=== PATIENT | female | born 1940 | race Caucasian/White ===

== ENCOUNTER 2017-03-17 07:44 | Emergency (ER) | payer MEDICARE, OTHER ==
[2016-10-22 08:54] VITALS: BMI 25.8
[~2017-03-17 07:44] MED LIST: COLACE100 MG PO; CYCLOBENZAPRINE10 MG PO; EFFIENT10 MG PO; ELIQUIS2.5 MG PO; ELIQUIS5 MG PO; FLUTICASONE PRO16 GM NASAL; FLUTICASONE PRO16 GM NS; HCTZ25 MG PO; HYDROCODONE-APA1 TAB; HYDROCODONE-APA1 TAB PO; IMDUR30 MG PO; LISINOPRIL5 MG PO; NEXIUM40 MG PO; NITROSTAT0.4 MG SL; NORCO 10/325 TA1 TA1 PO; NORVASC5 MG PO; PHENERGAN25 M1 PO; PRAVACHOL40 MG PO; SINGULAIR10 MG PO; TRAZODONE HCL50 MG PO; VALIUM5 MG PO; VITAMIN B-12500 MC1 PO; XANAX0.5 MG PO; ZESTRIL20 MG PO; ZOFRAN8 MG PO
[2017-03-17 08:53] LABS: BASOPHILS 0.5 % (0-2); EOSINOPHILS 2.9 % (0-7); HEMATOCRIT 37.5 % (36.0-48.0); HEMOGLOBIN 12.1 g/dL (12-16); LYMPHOCYTES 36.5 % (15-50); MCH 30.5 pg (26.0-34.0); MCHC 32.3 g/dL (31.0-37.0); MCV 94.5 fL (80.0-100.0); MEAN PLATELET VOLUME 12.1 fL (7.4-10.4); MONOCYTES 8.2 % (2-11); NEUTROPHILS 51.9 % (40-80); PLATELET COUNT 191 10x3/uL (130-400); RBC 3.97 10x6/uL (4.00-5.40); RDW 12.9 % (11.5-14.5); WBC 4.4 10x3/uL (4.8-10.8)
[2017-03-17 09:02] LABS: ALBUMIN 3.3 g/dL (3.4-5.0); BILIRUBIN - TOTAL 0.18 mg/dL (0.2-1.3); CARBON DIOXIDE 25.4 mmol/L (21.0-32.0); CREATININE - SERUM 1.2 mg/dL (0.6-1.3); POTASSIUM - SERUM 5.4 mmol/L (3.5-5.1); PROTEIN - SERUM 7.1 g/dL (6.4-8.2)
[2017-03-17 09:05] LABS: APPEARANCE CLEAR (CLEAR); BILIRUBIN NEGATIVE (NEGATIVE); COLOR YELLOW (YELLOW); GLUCOSE NEGATIVE (NEGATIVE); KETONE NEGATIVE (NEGATIVE); LEUKOCYTE ESTERASE NEGATIVE (NEGATIVE); NITRITE NEGATIVE (NEGATIVE); PROTEIN NEGATIVE (NEGATIVE); SPECIFIC GRAVITY 1.005 (1.005-1.020); UROBILINOGEN NORMAL (NORMAL)
[2017-03-17 09:07] LABS: BACTERIA NONE SEEN /hpf (NONE SEEN); EPITHELIAL CELLS 0-5 /hpf (0-5); RED CELLS - URINE 0-5 /hpf (0-5); WHITE CELLS - URINE 0-5 /hpf (0-5)
== END 2017-03-17 14:30 | disposition home or self-care (01) ==
LOC: D.ER 07:44
PROVIDERS: Emergency Medicine
DX: R53.1 Weakness (principal); R06.00 Dyspnea, unspecified; I25.10 Atherosclerotic heart disease of native coronary artery without angina pectoris; I10 Essential (primary) hypertension; R00.1 Bradycardia, unspecified

== ENCOUNTER → 2017-04-27 09:26 | Outpatient (CLI) | payer MEDICARE, OTHER ==
[2016-10-22 08:54] VITALS: BMI 25.8
== END | disposition home or self-care (01) ==
LOC: D.RT 09:26
DX: J47.9 Bronchiectasis, uncomplicated (principal)

== ENCOUNTER → 2017-05-05 11:55 | Outpatient (CLI) | payer MEDICARE, OTHER ==
[2016-10-22 08:54] VITALS: BMI 25.8
[2017-05-05 12:51] LABS: BASOPHILS 0.6 % (0-2); EOSINOPHILS 2.2 % (0-7); HEMATOCRIT 40.3 % (36.0-48.0); HEMOGLOBIN 13.1 g/dL (12-16); IMMATURE GRANULOCYTES 0.2 % (0-5); LYMPHOCYTES 30.2 % (15-50); MCH 31.3 pg (26.0-34.0); MCHC 32.5 g/dL (31.0-37.0); MCV 96.4 fL (80.0-100.0); MEAN PLATELET VOLUME 11.5 fL (7.4-10.4); MONOCYTES 6.7 % (2-11); NEUTROPHILS 60.1 % (40-80); PLATELET COUNT 213 10x3/uL (130-400); RBC 4.18 10x6/uL (4.00-5.40); RDW 13.2 % (11.5-14.5); WBC 5.1 10x3/uL (4.8-10.8)
[2017-05-06 08:19] LABS: IMMUNOGLOBULIN E 25 IU/mL (0-100)
[2017-05-06 12:17] LABS: IMMUNOGLOBULIN A 399 mg/dL (64-422); IMMUNOGLOBULIN G 1025 mg/dL (700-1600); IMMUNOGLOBULIN M 37 mg/dL (26-217)
== END | disposition home or self-care (01) ==
LOC: D.LAB 11:55
PROVIDERS: Internal Medicine Pulmonary Disease
DX: Z87.01 Personal history of pneumonia (recurrent) (principal); J47.9 Bronchiectasis, uncomplicated; J44.9 Chronic obstructive pulmonary disease, unspecified

== ENCOUNTER → 2017-06-30 13:22 | Outpatient (CLI) | payer MEDICARE, OTHER ==
[2016-10-22 08:54] VITALS: BMI 25.8
== END | disposition home or self-care (01) ==
LOC: D.RAD 13:22
DX: J47.9 Bronchiectasis, uncomplicated (principal)

== ENCOUNTER → 2018-06-26 07:47 | Outpatient (CLI) | payer MEDICARE, OTHER ==
[2016-10-22 08:54] VITALS: BMI 25.8
--- NOTE | ~2018-06-26 | EC ---
PATIENT:CATRINA WALDEN DATE OF SERVICE: 06/26/18 SEX: F MEDICAL RECORD: [id number] DATE OF : 38 LOCATION:D.RT AGE OF PATIENT: 78 ADMISSION DATE: 06/26/18 REFERRING PHYSICIAN: INTERPRETING PHYSICIAN: SANDHYA FALL MD ECHOCARDIOGRAM REPORT ECHO CHARGES 4 ECHO COMPLETE Date: 06/26 CLINICAL DIAGNOSIS: PE, EDEMA ECHOCARDIOGRAPHIC MEASUREMENTS (adult normal given) AC root (d.<3.7cm) 2.6 cm LV Septum d (<1.2 cm> 1.6 cm Valve Excursion 1.8 cm LV Septum (systole) 1.9 cm Left Atria (s.<4.0cm> 3.2 cm LVPW d(<1.2cm) 0.7 cm RV (d.<2.3cm) 2.0 cm LVPW (sytole) 0.9 cm LV diastole(<5.6CM) 4.1 cm MV E-F(>70mm/sec) cm LV systole 3.3 cm LVOT Diameter 1.8 cm MV exc.(>10mm) cm Est.ejection fraction (50-75%) % DOPPLER: LVIT cm/sec A 94 cm/sec E 80 cm/sec LA cm/sec RVSP 18.6 mmHg LVOT 102 cm/sec AOP1/2T m/s Asc. Ao 158 cm/sec RVOT 81 cm/sec RA cm/sec PA 86 cm/sec AV Gradient Peak 10.0 mmHg AV Mean 4.9 mmHg AV Area 1.5 cm MV Gradient Peak 5.1 mmHg MV Mean 2.1 mmHg MV Area cm COMMENTS: Adjustment Clerk: Carlene LARSENSONJA ANGIE Comfort Filler: 1 Dr. Fall TAPE# PACS Pericardial Effusion N DATE OF SERVICE: 06/26/2018 PROCEDURE: Echocardiogram. FINDINGS: 1. Left ventricular chamber size is within normal limits. Left ventricular systolic function is normal. Overall ejection fraction estimated at 55%. 2. Left atrium, right atrium, and right ventricle chamber sizes are within normal limits. 3. Valvular structures have normal structure and motion. ECHOCARDIOGRAM REPORT [id number] CATRINA WALDEN 4. Doppler interrogation reveals only trace to mild mitral regurgitation, trace mild tricuspid regurgitation, no other valvular insufficiency or stenosis. 5. No evidence of pericardial effusion or left ventricular thrombus. TRANSINT:[id number] Voice Confirmation ID: [id number] DOCUMENT ID: [id number] SANDHYA FALL MD at 1642 CC: [id number] DICTATION DATE: 06/26/18 1232 INSPECTOR PLATING: 06/26/18 1333 DEP CLI 06/26/18 [place] [id number]
[2018-06-26 09:24] LABS: CREATININE - SERUM 1.4 mg/dL (0.6-1.3)
== END | disposition home or self-care (01) ==
LOC: D.RT 07:47
PROVIDERS: Internal Medicine Pulmonary Disease
DX: Z86.711 Personal history of pulmonary embolism (principal); R60.0 Localized edema; I25.10 Atherosclerotic heart disease of native coronary artery without angina pectoris; J44.9 Chronic obstructive pulmonary disease, unspecified

== ENCOUNTER 2018-09-15 09:52 | Emergency (ER) | payer MEDICARE, OTHER ==
[~2018-09-15] VITALS: Ht 162.6 cm; Wt 81.8 kg
[2018-09-15 09:55] VITALS: Ht 162.6 cm; Wt 81.8 kg
[2018-09-15 12:33] VITALS: BP 170/86
== END 2018-09-15 12:33 | disposition home or self-care (01) ==
LOC: D.ER 09:52
DX: M25.562 Pain in left knee (principal); M25.561 Pain in right knee; S00.83XA Contusion of other part of head, initial encounter; W18.30XA Fall on same level, unspecified, initial encounter; Y93.89 Activity, other specified; Y92.019 Unspecified place in single-family (private) house as the place of occurrence of the external cause; S49.92XA Unspecified injury of left shoulder and upper arm, initial encounter; R51 Headache

== ENCOUNTER → 2018-12-25 10:43 | Outpatient (CLI) | payer MEDICARE, OTHER, MEDICAID ==
[2018-09-15 09:55] VITALS: BMI 30.9
--- NOTE | 2019-01-02 11:18 | ST ---
PATIENT:CATRINA WALDEN MEDICAL RECORD: [id number] SEX: F LOCATION:[facility] ORDER #: ADMISSION DATE: 12/25/18 AGE OF PATIENT: 78 REFERRING PHYSICIAN: INTERPRETING PHYSICIAN: SANDHYA MYERS MD DATE OF SERVICE: 12/25/2018 PROCEDURE: Nuclear stress test. INDICATION: Angina and coronary artery disease, shortness of breath, hypertension. The patient was exercised on standard Lexiscan protocol with 32 mCi of sestamibi injected at peak stress, 11 mCi were used previously for rest images. FINDINGS: Gated SPECT reveals preserved ejection fraction at 68% with good wall motion and thickening and brightening throughout all segments. SPECT imaging Cardiolite was used as myocardial fusion agent. There is homogeneous uptake throughout all segments at rest and stress with no evidence of inducible ischemia or previous infarction. OVERALL IMPRESSION: 1. This is a normal nuclear stress test with no evidence of inducible ischemia or previous infarction. 2. Gated SPECT reveals a preserved ejection fraction at 68%. In this patient with ongoing symptomatology, the current scan does not suggest the presence of hemodynamically significant coronary artery disease. Evaluate noncardiac etiology of chest pain. TRANSINT:[id number] Voice Confirmation ID: [id number] DOCUMENT ID: [id number] SANDHYA MYERS MD at 1118 CC: [id number] DICTATION DATE: 12/26/18 1159 FARMWORKER FRUIT: 12/27/18 0316 DEP CLI 12/25/[address] [id number]
== END | disposition home or self-care (01) ==
LOC: D.HCCARDIO 10:43
DX: R07.89 Other chest pain (principal)

== ENCOUNTER → 2019-09-12 13:45 | Outpatient (CLI) | payer MEDICARE, OTHER, MEDICAID ==
[2018-09-15 09:55] VITALS: BMI 30.9
== END | disposition home or self-care (01) ==
LOC: D.RAD 09-11 14:45 → D.RT 09-11 15:00 → D.RAD 09-14 09:45
PROVIDERS: ATTEND Internal Medicine Pulmonary Disease
DX: J45.909 Unspecified asthma, uncomplicated (principal)

== ENCOUNTER 2019-11-13 15:30 | Emergency (ER) | payer MEDICARE, OTHER, MEDICAID ==
[~2019-11-13] VITALS: Ht 162.6 cm; Wt 64.5 kg
[2019-11-13 15:30] VITALS: Ht 162.6 cm; Wt 64.5 kg
[2019-11-13 16:52] LABS: BASOPHILS 0.5 % (0-2); EOSINOPHILS 3.1 % (0-7); HEMATOCRIT 34.5 % (36.0-48.0); HEMOGLOBIN 11.2 g/dL (12-16); IMMATURE GRANULOCYTES 0.2 % (0-5); LYMPHOCYTES 36.5 % (15-50); MCHC 32.5 g/dL (31.0-37.0); MCV 95.6 fL (80.0-100.0); MEAN PLATELET VOLUME 10.4 fL (7.4-10.4); MONOCYTES 7.6 % (2-11); NEUTROPHILS 52.1 % (40-80); RBC 3.61 10x6/uL (4.00-5.40); WBC 5.8 10x3/uL (4.8-10.8)
[2019-11-13 16:57] LABS: PLATELET COUNT 286 10x3/uL (130-400)
[2019-11-13 17:05] LABS: CALC OSMOLALITY 281 mosm/kg (275-300); CALCIUM 8.1 mg/dL (8.5-10.1); CARBON DIOXIDE 27.7 mmol/L (21.0-32.0); CHLORIDE - SERUM 107 mmol/L (98-107); CREATININE - SERUM 0.9 mg/dL (0.6-1.3); GLUCOSE 91 mg/dL (74-106); INR 1.16 (0.85-1.17); POTASSIUM - SERUM 4.3 mmol/L (3.5-5.1); PROTIME 14.8 SECONDS (11.6-15.0); SODIUM 141 mmol/L (136-145); UREA NITROGEN 16 mg/dL (7-18); eGFR NON AFRICAN AMERICAN 64 mL/min (90-120)
[2019-11-13 17:22] LABS: ALBUMIN 3.3 g/dL (3.4-5.0); ALKALINE PHOSPHATASE 40 U/L (46-116); ALT (SGPT) 13 U/L (10-68); BILIRUBIN - TOTAL 0.25 mg/dL (0.2-1.3); CKMB 0.9 U/L (0.0-3.6); CREATINE KINASE 59 UL (21-215); MAGNESIUM - SERUM 2.2 mg/dL (1.8-2.4); THYROID STIMULATING HORMONE 1.39 uIU/mL (0.36-3.74)
[2019-11-13 17:24] LABS: TROPONIN-I < 0.017 ng/mL (0.000-0.060)
[2019-11-13 19:01] LABS: APPEARANCE CLEAR (CLEAR); BILIRUBIN NEGATIVE (NEGATIVE); COLOR YELLOW (YELLOW); GLUCOSE NEGATIVE (NEGATIVE); KETONE NEGATIVE (NEGATIVE); NITRITE NEGATIVE (NEGATIVE); PROTEIN NEGATIVE (NEGATIVE); UROBILINOGEN NORMAL (NORMAL)
[2019-11-13] MEDS ORDERED: MECLIZINE HCL25 MG PO (19:02)
[2019-11-13 19:38] VITALS: BP 140/66
[2019-11-16] MEDS ORDERED: DILTIAZEM 24HR240 M4 (00:46)
== END 2019-11-13 19:38 | disposition home or self-care (01) ==
LOC: D.ER 15:30
PROVIDERS: Family Medicine
DX: R42 Dizziness and giddiness (principal); W19.XXXA Unspecified fall, initial encounter; R55 Syncope and collapse; I25.10 Atherosclerotic heart disease of native coronary artery without angina pectoris; Z95.5 Presence of coronary angioplasty implant and graft; M54.9 Dorsalgia, unspecified

== ENCOUNTER 2019-11-16 00:34 | Inpatient (IN) | payer MEDICARE, OTHER, MEDICAID ==
[~2019-11-16] VITALS: Ht 162.6 cm; Wt 64.0 kg
[~2019-11-16 00:34] MED LIST changes: +MECLIZINE HCL25 MG PO
[2019-11-16] MEDS ORDERED: BENICAR20 MG PO (00:43)
[2019-11-16] MEDS ORDERED: BROVANA15 MCG/2 M INH (00:44)
[2019-11-16] MEDS ORDERED: LOMOTIL 2.5-0.1 EAC1 PO (00:45)
[2019-11-16] MEDS ORDERED: PULMICORT0.5 MG/21 INH (00:45)
[2019-11-16] MEDS ORDERED: DILTIAZEM 24HR240 M4 PO (00:46)
[2019-11-16 01:00] LABS: BASOPHILS 0.1 % (0-2); EOSINOPHILS 1.7 % (0-7); HEMATOCRIT 35.1 % (36.0-48.0); HEMOGLOBIN 11.4 g/dL (12-16); IMMATURE GRANULOCYTES 0.2 % (0-5); LYMPHOCYTES 6.2 % (15-50); MCH 30.9 pg (26.0-34.0); MCHC 32.5 g/dL (31.0-37.0); MCV 95.1 fL (80.0-100.0); MEAN PLATELET VOLUME 11.1 fL (7.4-10.4); MONOCYTES 7.6 % (2-11); NEUTROPHILS 84.2 % (40-80); RBC 3.69 10x6/uL (4.00-5.40); WBC 9.7 10x3/uL (4.8-10.8)
[2019-11-16 01:03] LABS: PLATELET COUNT 121 10x3/uL (130-400)
[2019-11-16 01:13] LABS: CALC OSMOLALITY 281 mosm/kg (275-300); CALCIUM 8.3 mg/dL (8.5-10.1); CARBON DIOXIDE 27.4 mmol/L (21.0-32.0); CHLORIDE - SERUM 107 mmol/L (98-107); GLUCOSE 126 mg/dL (74-106); POTASSIUM - SERUM 4.3 mmol/L (3.5-5.1); SODIUM 140 mmol/L (136-145); UREA NITROGEN 16 mg/dL (7-18); eGFR NON AFRICAN AMERICAN 56 mL/min (90-120)
[2019-11-16 01:25] LABS: ALBUMIN 3.2 g/dL (3.4-5.0); ALKALINE PHOSPHATASE 36 U/L (46-116); ALT (SGPT) 12 U/L (10-68); AMYLASE - SERUM 35 U/L (25-115); BILIRUBIN - TOTAL 0.24 mg/dL (0.2-1.3); LIPASE 71 U/L (73-393); PROTEIN - SERUM 6.7 g/dL (6.4-8.2)
[2019-11-16 01:26] LABS: TROPONIN-I < 0.017 ng/mL (0.000-0.060)
[2019-11-16 02:38] LABS: APPEARANCE CLEAR (CLEAR); BILIRUBIN NEGATIVE (NEGATIVE); COLOR YELLOW (YELLOW); GLUCOSE NEGATIVE (NEGATIVE); KETONE NEGATIVE (NEGATIVE); NITRITE NEGATIVE (NEGATIVE); PROTEIN 1+ mg/dL (NEGATIVE); SPECIFIC GRAVITY 1.015 (1.005-1.020); UROBILINOGEN NORMAL (NORMAL)
[2019-11-16 02:39] LABS: BACTERIA FEW /hpf (NEGATIVE); EPITHELIAL CELLS 0-5 /hpf (0-5); RED CELLS - URINE 0-5 /hpf (0-5); WHITE CELLS - URINE 0-5 /hpf (NEGATIVE)
[2019-11-16 03:00] VITALS: BP 124/58; BMI 24.2
[2019-11-16 05:30] VITALS: BP 124/58
--- NOTE | 2019-11-16 07:30 | NUR ---
PT IS RESTING IN BED WITH EYES CLOSED. RESPIRATIONS ARE EVEN AND UNLABORED. PT IS EASILY AROUSED WITH VERBAL STIMULATION. PT IS AAO X 4 UPON AROUSAL. PIV TO LEFT FOREARM INFUSING WITHOUT DIFFICULTY. PT DENIES PRESENCE OF PAIN/N/V. PT STATES THAT SHE HAS HAD MULTIPLE LOOSE STOOLS "RECENTLY". ALL FALL PRECAUTIONS ARE IN PLACE. BED IS IN THE LOWEST POSITION. CALL LIGHT AND BEDSIDE TABLE ARE WITHIN REACH. SIDE RAILS X 2. PT DENIES FURTHER NEEDS. WILL CONT TO MONITOR.
[2019-11-16 09:24] VITALS: BP 160/67
[2019-11-16 12:38] VITALS: Ht 162.6 cm; Wt 64.0 kg
[2019-11-16 13:41] VITALS: BP 146/57
[2019-11-16 16:01] LABS: CKMB 0.4 U/L (0.0-3.6); CREATINE KINASE 65 UL (21-215); TROPONIN-I 0.027 ng/mL (0.000-0.060)
[2019-11-16 17:16] VITALS: BP 141/51
[2019-11-16 20:00] VITALS: BP 138/61
[2019-11-16 21:25] LABS: CKMB 0.6 U/L (0.0-3.6); CREATINE KINASE 15 UL (21-215)
[2019-11-16 21:28] LABS: TROPONIN-I 0.089 ng/mL (0.000-0.060)
--- NOTE | 2019-11-16 21:35 | NUR ---
ELEVATED TROPONIN 0.089 REPORTED TO WANDA RODRIGUEZ. NO NEW ORDERS. WILL CONTINUE TO MONITOR.
[2019-11-17] VITALS: BP 122/46
[2019-11-17 04:00] VITALS: BP 131/54
[2019-11-17 06:30] LABS: BASOPHILS 0.3 % (0-2); HEMATOCRIT 32.2 % (36.0-48.0); HEMOGLOBIN 10.1 g/dL (12-16); LYMPHOCYTES 31.8 % (15-50); MCH 30.3 pg (26.0-34.0); MCHC 31.4 g/dL (31.0-37.0); MCV 96.7 fL (80.0-100.0); MEAN PLATELET VOLUME 10.4 fL (7.4-10.4); MONOCYTES 11.9 % (2-11); RBC 3.33 10x6/uL (4.00-5.40); RDW 13.3 % (11.5-14.5)
[2019-11-17 06:44] LABS: PLATELET COUNT 255 10x3/uL (130-400); WBC 3.8 10x3/uL (4.8-10.8)
[2019-11-17 08:50] LABS: ALBUMIN 2.6 g/dL (3.4-5.0); ALKALINE PHOSPHATASE 35 U/L (46-116); ALT (SGPT) 12 U/L (10-68); BILIRUBIN - TOTAL 0.18 mg/dL (0.2-1.3); CALC OSMOLALITY 288 mosm/kg (275-300); CALCIUM 7.6 mg/dL (8.5-10.1); CARBON DIOXIDE 24.4 mmol/L (21.0-32.0); CHLORIDE - SERUM 112 mmol/L (98-107); CKMB 0.8 U/L (0.0-3.6); CREATINE KINASE 61 UL (21-215); CREATININE - SERUM 0.9 mg/dL (0.6-1.3); GLUCOSE 83 mg/dL (74-106); PROTEIN - SERUM 5.7 g/dL (6.4-8.2); SODIUM 146 mmol/L (136-145); TROPONIN-I < 0.017 ng/mL (0.000-0.060); eGFR NON AFRICAN AMERICAN 64 mL/min (90-120)
[2019-11-17 08:57] LABS: UREA NITROGEN 10 mg/dL (7-18)
[2019-11-17 09:13] VITALS: BP 126/42
[2019-11-17 13:38] VITALS: BP 145/68
[2019-11-17 17:12] VITALS: BP 140/58
--- NOTE | 2019-11-17 17:48 | NUR ---
I have reviewed this patient and I concur with the Shift Assessment completed by the Licensed Practical Nurse today this shift.
[2019-11-17 20:00] VITALS: BP 151/57
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
[2019-11-18] VITALS: BP 122/85
[2019-11-18 04:00] VITALS: BP 116/53
--- NOTE | 2019-11-18 06:31 | NUR ---
PT C/O BACK PAIN 06/16 AND STIFFNESS. GAVE NORCO-10 1 TAB PO. NO OTHER NEEDS. WILL REASSESS AND CONTINUE TO MONITOR.
[2019-11-18 06:38] LABS: ALBUMIN 2.7 g/dL (3.4-5.0); ANION GAP 12.7 mmol/L (8-16); BILIRUBIN - TOTAL 0.18 mg/dL (0.2-1.3); CALCIUM 7.4 mg/dL (8.5-10.1); CARBON DIOXIDE 24.7 mmol/L (21.0-32.0); CREATININE - SERUM 0.9 mg/dL (0.6-1.3); POTASSIUM - SERUM 3.4 mmol/L (3.5-5.1); PROTEIN - SERUM 5.9 g/dL (6.4-8.2)
[2019-11-18 06:51] LABS: BASOPHILS 0.5 % (0-2); EOSINOPHILS 5.5 % (0-7); HEMATOCRIT 31.5 % (36.0-48.0); HEMOGLOBIN 9.8 g/dL (12-16); MCH 30.2 pg (26.0-34.0); MCHC 31.1 g/dL (31.0-37.0); MCV 96.9 fL (80.0-100.0); MEAN PLATELET VOLUME 11.3 fL (7.4-10.4); MONOCYTES 11.4 % (2-11); NEUTROPHILS 50.6 % (40-80); PLATELET COUNT 249 10x3/uL (130-400); RBC 3.25 10x6/uL (4.00-5.40); RDW 13.3 % (11.5-14.5); WBC 4.4 10x3/uL (4.8-10.8)
--- NOTE | 2019-11-18 07:49 | NUR ---
SON CAME OUT TO DESK, OBVIOUSLY NERVOUS AND FIDGITY. STATES THAT THE NEPHEW WE'RE LOOKING FOR IS PART OF THE CARTEL. WILL CNT. TO MONITOR.
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
--- NOTE | 2019-11-18 14:35 | NUR ---
PT RESTING COMFORTABLY IN ROOM, DOOR CLOSED, NO FAMILY AT BEDSIDE. NO FAMILY AT BEDSIDE. PT IS STILL CONCERNED ABOUT HER NEPHEW SHOWING UP, BUT HE HAS NOT BEEN SEEN SINCE THIS MORNING. NO OTHER COMPLAINTS OR CONCERNS, ALL QUESTIONS ANSWERED TO THE BEST OF MY ABILITY. CL IN REACH, SRX2.
--- NOTE | 2019-11-18 15:13 | NUR ---
I have reviewed this patient and I concur with the Shift Assessment completed by the Licensed Practical Nurse today this shift.
[2019-11-18 17:04] VITALS: BP 164/67
[2019-11-18 19:30] VITALS: BP 123/60
[2019-11-19 00:42] VITALS: BP 120/64
--- NOTE | 2019-11-19 03:00 | NUR ---
I have reviewed this patient and I concur with the Shift Assessment completed by the Licensed Practical Nurse today this shift.
--- NOTE | 2019-11-19 03:52 | NUR ---
IV TO LFA INFILTRATED..RESTARTED TO RFA WITH 22G X 1 ATTEMPT.TOLERATED WELL.COMPLAINTS OF ANXIETY.REQUESTING VALIUM 5 MG, GIVEN PER REQUEST.
[2019-11-19 05:40] VITALS: BP 172/65
[2019-11-19 06:36] LABS: ALBUMIN 2.8 g/dL (3.4-5.0); ANION GAP 12.3 mmol/L (8-16); BILIRUBIN - TOTAL 0.2 mg/dL (0.2-1.3); POTASSIUM - SERUM 3.3 mmol/L (3.5-5.1); PROTEIN - SERUM 5.9 g/dL (6.4-8.2)
[2019-11-19 07:02] LABS: BASOPHILS 0.3 % (0-2); EOSINOPHILS 4.9 % (0-7); HEMATOCRIT 30.7 % (36.0-48.0); HEMOGLOBIN 9.9 g/dL (12-16); IMMATURE GRANULOCYTES 0.2 % (0-5); LYMPHOCYTES 25.2 % (15-50); MCH 30.4 pg (26.0-34.0); MCHC 32.2 g/dL (31.0-37.0); MEAN PLATELET VOLUME 11.4 fL (7.4-10.4); MONOCYTES 11.9 % (2-11); NEUTROPHILS 57.5 % (40-80); PLATELET COUNT 276 10x3/uL (130-400); RBC 3.26 10x6/uL (4.00-5.40); RDW 13.1 % (11.5-14.5)
[2019-11-19 07:04] LABS: MCV 94.2 fL (80.0-100.0); WBC 5.9 10x3/uL (4.8-10.8)
--- NOTE | 2019-11-19 07:34 | NUR ---
AWAKE AND ALERT. ORIENTED X3. NO C/O AT THIS TIME. LUNGS ARE CLEAR BILATERALLY BUT DIMINISHED THROUGHOUT. NO COUGH NOTED. SKIN IS INTACT WITHOUT REDNESS. SL TO RIGHT FOREARM IS PATENT WITHOUT REDNESS AT INSERTION SITE. DENIES NEEDS.
[2019-11-19 09:03] VITALS: BP 181/75
--- NOTE | 2019-11-19 09:30 | NUR ---
ATE MOST OF BREAKFAST. TOOK AM MEDS WITHOUT DIFFICUTLY. DENIES NEEDS. REFUSED BATH AT THIS TIME.
--- NOTE | 2019-11-19 10:58 | NUR ---
REQUESTED AND GIVEN ONE HYDROCODONE PO FOR C/O BACK PAIN LEVEL 10. WILL MONITOR.
--- NOTE | 2019-11-19 12:18 | CN ---
PATIENT NAME:CATRINA WALDEN MEDICAL RECORD: [id number] : 38 LOCATION:D.MS [place] ADMIT DATE: 11/16/19 ACCOUNT: [id number] CONSULTING PHYSICIAN: MARY KATE CHAVIS MD REFERRING PHYSICIAN: ABDIRASHID KINSEY MD DATE OF CONSULTATION: 11/18/2019 HISTORY OF PRESENT ILLNESS: An 79-year-old female with known history of coronary artery disease, status post intervention in the LAD and diagonal. She has a history of atrial fibrillation, paroxysmal, on DOAC for seizure prophylaxis, admitted with near syncope, diarrhea, generalized malaise, fatigue. Initial cardiac enzymes showed a troponin of 0.89. Subsequently, after hydration these have improved. She reports no recent chest pain. No recent rheumatogenic type symptomatology and is feeling better after hydration and antibiotics as well. We were asked to see her concerning cardiovascular status. PAST MEDICAL HISTORY: Includes, 1. History of hypertension. 2. Paroxysmal atrial fibrillation. 3. Obstructive pulmonary disease with reactive component. ALLERGIES: INCLUDE DEMEROL, MORPHINE AND CODEINE. MEDICATIONS: Brovana 15 mcg b.i.d., Eliquis 5 mg p.o. b.i.d., Benicar 20 every day, diltiazem 240 every day, Streetman 10/325 two q. 4 hours p.r.n., Valium 5 mg p.o. t.i.d. p.r.n., Singulair 10 mg p.o. at bedtime, Pulmicort 0.5 b.i.d., Nexium 40 mg p.o. daily. SOCIAL HISTORY: Nonsmoker, nondrinker. Typically, takes care of all ADLs. Good family support. REVIEW OF SYSTEMS: The patient reports easy bruising but reports no swollen glands. The patient reports no fever, no night sweats, no significant weight gain, no significant weight loss. No significant exercise tolerance. The patient reports no dry eyes, no irritation, no vision change. Patient reports no difficulty hearing and no ear pain. Patient reports no frequent nose bleeds or nose and sinus problems. Patient reports on arm pain on exertion. No shortness of breath while lying down. No history of heart murmur. Patient reports no cough, no wheezing or coughing up blood. Patient reports no abdominal pain, no vomiting. Normal appetite. No diarrhea and not vomiting blood. No nausea and no constipation. Patient reports no incontinence. No difficulty urinating. No hematuria. No increased frequency. Patient reports no muscle aches. No weakness, no arthralgias, no back pain. No swelling of the extremities. Patient reports no abnormal mole, no jaundice, no rashes. Reports no loss of consciousness. No weakness and no numbness. No seizures, dizziness, or headaches. The patient reports no depression, no sleep disturbance, feeling safe in a relationship and no alcohol abuse. Patient reports on fatigue. Reports no runny nose or sinus pressure. No itching, no hives, and no frequent sneezing. PHYSICAL EXAMINATION: GENERAL: Pleasant female, appears stated age. VITAL SIGNS: 116/53, pulse 55 and regular. HEENT: Normocephalic, atraumatic. NECK: No JVD or bruit. CONSULT REPORT [id number] CATRINA WALDEN HEART: Regular. LUNGS: Lung hamlin are clear. ABDOMEN: Soft, nontender. EXTREMITIES: Pulses 2+. There is no edema. DIAGNOSTIC DATA: EKG shows normal sinus rhythm, occasional PVC, left axis deviation. IMPRESSION: Suspect elevated cardiac enzymes may be secondary to intravascular volume depletion. No evidence of ischemia ECG changes. None symptomatically. PLAN: At this point, plan to check echocardiographic study to ensure no focal wall motion abnormalities. Thank you for the consultation. TRANSINT:[id number] Voice Confirmation ID: [id number] DOCUMENT ID: [id number] MARY KATE CHAVIS MD at 1218 CC: [id number] DICTATION DATE: 11/18/191124 APPLIED MARINE PHYSICS PROFESSOR: 11/18/19 2158 ADM IN [place] [id number] [place] [id number]
[2019-11-19] MEDS ORDERED: FLAGYL500 MG PO (12:24)
[2019-11-19] MEDS ORDERED: LEVOFLOXACIN500 MG PO (12:25)
[2019-11-19 12:45] VITALS: BP 179/71
--- NOTE | 2019-11-19 14:32 | MORECARE ---
CASE MANAGEMENT DISCHARGE SUMMARY PATIENT: CATRINA WALDEN UNIT: [id number] ADM DATE: 11/16/19 AGE: 79 : 39 SEX: F ROOM/BED: D.2206 AUTHOR: MAXX MAE PHYSICIAN: REFERRING PHYSICIAN: ABDIRASHID KINSEY MD DATE OF SERVICE: 11/19/19 Discharge Plan Patient Name: CATRINA WALDEN Facility: [facility]:[place] : 1940 Planned Disposition: Home Anticipated Discharge Date: Discharge Date: Expected LOS: Initial Reviewer: [email or web address] Initial Review Date: 11/16/2019 Generated: 11/19/19 3:31 pm DCPIA - Discharge Planning Initial Assessment Updated by [email or web address]: Eugenie Power on 11/19/19 2:31 pm * Is the patient Alert and Oriented? Yes * How many steps to enter\exit or inside your home? RAMP * PCP AN * Pharmacy [facility] * Preadmission Environment Home with Family * ADLs Partial Dependent * Partial ADLs (Assistance needed) Bathing * Equipment Bedside Commode Cane Elevated Toliet Seat Nebulizer Oxygen Rolling Walker * Other Equipment POX BP BARS * List name and contact numbers for known caregivers / representatives who currently or will assist patient after discharge: ANTOINETTE RAGSDALE [phone] * Verbal permission to speak to the caregivers and representatives has been obtained from the patient. N/A * Community resources currently utilized [employer] * Please name any agencies selected above. [facility] * Additional services required to return to the preadmission environment? No * Can the patient safely return to the preadmission environment? Yes * Has this patient been hospitalized within the prior 30 days at any hospital? No Coverage Notice Reviewer: [email or web address] Shaylee Power Notice Issued Date-Time: 11/19/2019 14:25 Notice Type: IM Discharge Notice Notice Delivered To: Patient Relationship to Patient: Welding Equipment Repairer Name: Delivery Method: HAND - Hand Delivered Aria Days: Prior Verbal Notification: Recipient Understood Notice: Yes Recipient Signature: Yes Med Rec Note Co-signed by Attending: Coverage Notice Comment: Reviewer: [id number] Shaylee Power Notice Issued Date-Time: 11/19/2019 14:25 Notice Type: Patient Choice Letter Notice Delivered To: Patient Relationship to Patient: Welding Equipment Repairer Name: Delivery Method: HAND - Hand Delivered Aria Days: Prior Verbal Notification: Recipient Understood Notice: Yes Recipient Signature: Yes Med Rec Note Co-signed by Attending: Coverage Notice Comment: [facility] Patient Name: CATRINA WALDEN Page [phone] at 1432 All edits/amendments must be made on the electronic document DICTATION DATE: 11/19/191430 EXERCISE PHYSIOLOGIST: FABRICE 11/19/191430 RPT#: [id number] DC DATE: STATUS: ADM IN [facility] [address] [place] [address] END OF REPORT
--- NOTE | 2019-11-19 14:39 | MORECARE ---
CASE MANAGEMENT DISCHARGE SUMMARY PATIENT: CATRINA WALDEN UNIT: [id number] ADM DATE: 11/16/19 AGE: 79 : 39 SEX: F ROOM/BED: D.2206 AUTHOR: TUDOC PHYSICIAN: REFERRING PHYSICIAN: ABDIRASHID KINSEY MD DATE OF SERVICE: 11/19/19 Discharge Plan Patient Name: CATRINA WALDEN Facility: [facility]:[place] : 1940 Planned Disposition: Home Anticipated Discharge Date: Discharge Date: Expected LOS: Initial Reviewer: [email or web address] Initial Review Date: 11/16/2019 Generated: 11/19/19 3:39 pm Comments DCP- Discharge Planning Updated by [email or web address]: Eugenie Power on 11/19/19 1:[address] Patient Name: CATRINA WALDEN Admission Status: ER Accout number: [id number] Admission Date: 11-16-2019 : 1940 Admission Diagnosis: Attending: DION Current LOS: 3 Anticipated DC Date: Planned Disposition: Home Primary Insurance: MEDICARE A & B Discharge PlanCM met with patient to complete initial dc planning assessment. CM educated patient on the CM role and verbal consent given by patient to complete assessment. Patient lives at home where she states her daughter lives in her basement and helps her. She also has a son that checks on her multiple times a day. At discharge patient plans to return home and feels this is a safe discharge. CM discussed availability of home health, rehab services, and medical equipment. She is current with [facility] and [facility]. She is happy with them and will continue to use their services. She has O2, cane, walker, POX, BP, bars, nebulizer all at home. Patient's son will drive her home at discharge. IMM served and explained. JANI is signed for [facility]. Patient denied known discharge needs at this time. CM will continue to follow and will assist as needed with dc plans/needs. Asset Analyst: Eugenie Power DCPIA - Discharge Planning Initial Assessment Updated by [id number]: Eugenie Power on 11/19/19 2:31 pm * Is the patient Alert and Oriented? Yes * How many steps to enter\exit or inside your home? RAMP * PCP AN * Pharmacy [facility] * Preadmission Environment Home with Family * ADLs Partial Dependent * Partial ADLs (Assistance needed) Bathing * Equipment Bedside Commode Cane Elevated Toliet Seat Nebulizer Oxygen Rolling Walker * Other Equipment POX BP BARS * List name and contact numbers for known caregivers / representatives who currently or will assist patient after discharge: ANTOINETTE RAGSDALE [phone] * Verbal permission to speak to the caregivers and representatives has been obtained from the patient. N/A * Community resources currently utilized [employer] Program * Please name any agencies selected above. [employer] [facility] * Additional services required to return to the preadmission environment? No * Can the patient safely return to the preadmission environment? Yes * Has this patient been hospitalized within the prior 30 days at any hospital? No Coverage Notice Reviewer: [id number] Shaylee Power Notice Issued Date-Time: 11/19/2019 14:25 Notice Type: IM Discharge Notice Notice Delivered To: Patient Relationship to Patient: Tube Room Supervisor Name: Delivery Method: HAND - Hand Delivered Aria Days: Prior Verbal Notification: Recipient Understood Notice: Yes Recipient Signature: Yes Med Rec Note Co-signed by Attending: Coverage Notice Comment: Reviewer: [id number] Power Notice Issued Date-Time: 11/19/2019 14:25 Notice Type: Patient Choice Letter Notice Delivered To: Patient Relationship to Patient: Tube Room Supervisor Name: Delivery Method: HAND - Hand Delivered Aria Days: Prior Verbal Notification: Recipient Understood Notice: Yes Recipient Signature: Yes Med Rec Note Co-signed by Attending: Coverage Notice Comment: [facility] Last DP export: 11/19/19 1:32 p Patient Name: CATRINA WALDEN Page [phone] at 1439 All edits/amendments must be made on the electronic document DICTATION DATE: 11/19/19 143 MOTOR BLOCK MECHANIC: FABRICE 11/19/19 143 RPT#: [id number] DC DATE: STATUS: ADM IN [facility] [address] [place] [address] END OF REPORT
--- NOTE | 2019-11-19 15:00 | NUR ---
DISCHARGED TO HOME AMBULATORY WITH FAMILY. DISCHARGE INSTRUCTIONS GIVEN BOTH VERBALLY AND WRITTEN. ALL QUESTIONS ANSWERED. PATIENT VERBALIZED UNDERSTANDING OF SAME. NEEDED PRESCRIPTIONS ESCRIBED TO PHARMACY OF CHOICE. SL TO RIGHT FOREARM D/C WITH CATHETER INTACT. ALL BELONGINGS WITH PATIENT.
--- NOTE | 2019-11-20 09:00 | MORECARE ---
CASE MANAGEMENT DISCHARGE SUMMARY PATIENT: CATRINA WALDEN UNIT: [id number] ADM DATE: 11/16/19 AGE: 79 : 39 SEX: F ROOM/BED: D.2206 AUTHOR: TU,DOC PHYSICIAN: REFERRING PHYSICIAN: ABDIRASHID KINSEY MD DATE OF SERVICE: 11/20/19 Discharge Plan Patient Name: CATRINA WALDEN Facility: [facility]:[place] : 1940 Planned Disposition: Home Anticipated Discharge Date: Discharge Date: 11/19/2019 Expected LOS: Initial Reviewer: [email or web address] Initial Review Date: 11/16/2019 Generated: 11/20/19 9:59 am Comments DCP- Discharge Planning Updated by [email or web address]: Eugenie Power on 11/19/19 1:[address] Patient Name: CATRINA WALDEN Admission Status: ER Accout number: [id number] Admission Date: 11-16-2019 : 1940 Admission Diagnosis: Attending: DION Current LOS: 3 Anticipated DC Date: Planned Disposition: Home Primary Insurance: MEDICARE A & B Discharge PlanCM met with patient to complete initial dc planning assessment. CM educated patient on the CM role and verbal consent given by patient to complete assessment. Patient lives at home where she states her daughter lives in her basement and helps her. She also has a son that checks on her multiple times a day. At discharge patient plans to return home and feels this is a safe discharge. CM discussed availability of home health, rehab services, and medical equipment. She is current with [facility] and [facility]. She is happy with them and will continue to use their services. She has O2, cane, walker, POX, BP, bars, nebulizer all at home. Patient's son will drive her home at discharge. IMM served and explained. JANI is signed for [facility]. Patient denied known discharge needs at this time. CM will continue to follow and will assist as needed with dc plans/needs. Insurance Investigator: Eugenie Power DCPIA - Discharge Planning Initial Assessment Updated by [email or web address]: Eugenie Power on 11/19/19 2:31 pm * Is the patient Alert and Oriented? Yes * How many steps to enter\exit or inside your home? RAMP * PCP AN * [facility]acy [facility] * Preadmission Environment Home with Family * ADLs Partial Dependent * Partial ADLs (Assistance needed) Bathing * Equipment Bedside Commode Cane Elevated Toliet Seat Nebulizer Oxygen Rolling Walker * Other Equipment POX BP BARS * List name and contact numbers for known caregivers / representatives who currently or will assist patient after discharge: ANTOINETTE RAGSDALE [phone] * Verbal permission to speak to the caregivers and representatives has been obtained from the patient. N/A * Community resources currently utilized [employer] * Please name any agencies selected above. [employer] [facility] * Additional services required to return to the preadmission environment? No * Can the patient safely return to the preadmission environment? Yes * Has this patient been hospitalized within the prior 30 days at any hospital? No Coverage Notice Reviewer: [email or web address] Shaylee Power Notice Issued Date-Time: 11/19/2019 14:25 Notice Type: IM Discharge Notice Notice Delivered To: Patient Relationship to Patient: Dry Yard Worker Name: Delivery Method: HAND - Hand Delivered Aria Days: Prior Verbal Notification: Recipient Understood Notice: Yes Recipient Signature: Yes Med Rec Note Co-signed by Attending: Coverage Notice Comment: Reviewer: [email or web address] Shaylee Power Notice Issued Date-Time: 11/19/2019 14:25 Notice Type: Patient Choice Letter Notice Delivered To: Patient Relationship to Patient: Dry Yard Worker Name: Delivery Method: HAND - Hand Delivered Aria Days: Prior Verbal Notification: Recipient Understood Notice: Yes Recipient Signature: Yes Med Rec Note Co-signed by Attending: Coverage Notice Comment: [facility] Last DP export: 11/19/19 1:39 p Patient Name: CATRINA WALDEN Page [phone] at 0900 All edits/amendments must be made on the electronic document DICTATION DATE: 11/20/19858 PALLET STONE POSITIONER: FABRICE 11/20/1960 RPT#: [id number] DC DATE:11/19/19 STATUS: DIS IN [facility] [address] [place] [address] END OF REPORT
--- NOTE | 2019-11-22 13:25 | EC ---
PATIENT:CATRINA WALDEN DATE OF SERVICE: 11/16/19 SEX: F MEDICAL RECORD: [id number] DATE OF : 38 LOCATION:[facility] AGE OF PATIENT: 79 ADMISSION DATE: 11/16/19 REFERRING PHYSICIAN: INTERPRETING PHYSICIAN: MARY KATE CHAVIS MD ECHOCARDIOGRAM REPORT ECHO CHARGES 4 ECHO COMPLETE Date: 11/18/19 CLINICAL DIAGNOSIS: SYNCOPE ECHOCARDIOGRAPHIC MEASUREMENTS (adult normal given) AC root (d.<3.7cm) 3.0 cm LV Septum d (<1.2 cm> 1.0 cm Valve Excursion 1.7 cm LV Septum (systole) 1.7 cm Left Atria (s.<4.0cm> 3.1 cm LVPW d(<1.2cm) 1.1 cm RV (d.<2.3cm) 2.6 cm LVPW (sytole) 1.2 cm LV diastole(<5.6CM) 4.3 cm MV E-F(>70mm/sec) cm LV systole 2.7 cm LVOT Diameter 1.5 cm MV exc.(>10mm) cm Est.ejection fraction (50-75%) % DOPPLER: LVIT cm/sec A 110 cm/sec E 99 cm/sec LA 113 cm/sec RVSP mmHg LVOT 161 cm/sec AOP1/2T m/s Asc. Ao 100 cm/sec RVOT cm/sec RA 101 cm/sec PA 33.8 cm/sec AV Gradient Peak 10.4 mmHg AV Mean 5.0 mmHg AV Area 1.3 cm MV Gradient Peak 6.4 mmHg MV Mean 3.4 mmHg MV Area cm COMMENTS: Testing And Regulating Technician: Carlene ADAMS [employer] Law Professor: 3 Dr. Jackson TAPE# PACS Pericardial Effusion N DATE OF SERVICE: 11/19/2019 Adequate 2D echo, color flow, spectral Doppler, and M-mode. No LVH. LV internal dimension is normal. Wall motion is normal. EF 35%. Aortic valve is tricuspid. No evidence of stenosis by Doppler interrogation. Left atrium is normal. Mitral valve shows no prolapse. Trace MR. Right-sided chambers are grossly normal. Trace TR. TRANSINT:[id number] Voice Confirmation ID: [id number] DOCUMENT ID: [id number] ECHOCARDIOGRAM REPORT [id number] CATRINA WALDEN MARY KATE CHAVIS MD at 1325 CC: [id number] DICTATION DATE: 11/19/19 1211 QUALITY ASSURANCE REPRESENTATIVE: 11/19/19 2019 DIS IN 11/19/19 [id number] [place] [address]
== END 2019-11-19 15:03 | disposition home or self-care (01) | DRG 392 ==
LOC: D.ER 00:34 → OBSVTIME 02:17 → D.MS 02:17
PROVIDERS: Family Medicine; ADMIT Family Medicine; ATTEND Family Medicine
DX: K52.9 Noninfective gastroenteritis and colitis, unspecified (principal); I48.20 Chronic atrial fibrillation, unspecified; R55 Syncope and collapse; E86.0 Dehydration; D64.9 Anemia, unspecified; I25.10 Atherosclerotic heart disease of native coronary artery without angina pectoris; K21.9 Gastro-esophageal reflux disease without esophagitis; M19.90 Unspecified osteoarthritis, unspecified site; F41.8 Other specified anxiety disorders; I10 Essential (primary) hypertension

== ENCOUNTER 2020-04-19 07:52 | Emergency (ER) | payer MEDICARE, OTHER, MEDICAID ==
[~2020-04-19] VITALS: Ht 162.6 cm; Wt 57.7 kg
[~2020-04-19 07:52] MED LIST changes: +BENICAR20 MG PO; +BROVANA15 MCG/2 M INH; +DILTIAZEM 24HR240 M4 PO; +FLAGYL500 MG PO; +LEVOFLOXACIN500 MG PO; +LOMOTIL 2.5-0.1 EAC1 PO; +PULMICORT0.5 MG/21 INH
[2020-04-19 07:58] VITALS: Ht 162.6 cm; Wt 57.7 kg
[2020-04-19 08:42] LABS: BASOPHILS 0.2 % (0-2); EOSINOPHILS 1.6 % (0-7); HEMOGLOBIN 11.5 g/dL (12-16); IMMATURE GRANULOCYTES 0.2 % (0-5); MCH 30.3 pg (26.0-34.0); MCHC 31.9 g/dL (31.0-37.0); MEAN PLATELET VOLUME 11.3 fL (7.4-10.4); MONOCYTES 6.3 % (2-11); NEUTROPHILS 64.7 % (40-80); PLATELET COUNT 296 10x3/uL (130-400); RBC 3.79 10x6/uL (4.00-5.40); RDW 13.7 % (11.5-14.5); WBC 4.9 10x3/uL (4.8-10.8)
[2020-04-19 08:42] LABS: BILIRUBIN NEGATIVE (NEGATIVE); GLUCOSE NEGATIVE (NEGATIVE); KETONE NEGATIVE (NEGATIVE); NITRITE NEGATIVE (NEGATIVE); UROBILINOGEN NORMAL (NORMAL)
[2020-04-19 08:47] LABS: CALC OSMOLALITY 277 mosm/kg (275-300); CALCIUM 9.3 mg/dL (8.5-10.1); CHLORIDE - SERUM 105 mmol/L (98-107); CREATININE - SERUM 1.2 mg/dL (0.6-1.3); GLUCOSE 105 mg/dL (74-106); POTASSIUM - SERUM 4.6 mmol/L (3.5-5.1); SODIUM 138 mmol/L (136-145); UREA NITROGEN 17 mg/dL (7-18); eGFR NON AFRICAN AMERICAN 46 mL/min (90-120)
[2020-04-19 08:50] LABS: APTT 31.3 SECONDS (22.8-39.4); INR 1.07 (0.85-1.17); PROTIME 13.9 SECONDS (11.6-15.0)
[2020-04-19 08:51] LABS: D-DIMER-QUANTITATIVE 0.28 ug/mLFEU (0.20-0.54)
[2020-04-19 09:03] LABS: ALBUMIN 3.7 g/dL (3.4-5.0); ALKALINE PHOSPHATASE 34 U/L (30-120); ALT (SGPT) 19 U/L (10-68); BILIRUBIN - TOTAL 0.45 mg/dL (0.2-1.3); CKMB 1.9 U/L (0.0-3.6); CREATINE KINASE 72 UL (21-215); PROTEIN - SERUM 7.4 g/dL (6.4-8.2)
[2020-04-19 09:04] LABS: TROPONIN-I < 0.017 ng/mL (0.000-0.060)
[2020-04-19 09:18] VITALS: BP 149/72
== END 2020-04-19 09:18 | disposition home or self-care (01) ==
LOC: D.ER 07:52
PROVIDERS: Family Medicine
DX: F41.9 Anxiety disorder, unspecified (principal); R06.00 Dyspnea, unspecified; K21.9 Gastro-esophageal reflux disease without esophagitis; I48.91 Unspecified atrial fibrillation; R09.02 Hypoxemia

== ENCOUNTER 2020-05-06 11:53 | Inpatient (IN) | payer MEDICARE, OTHER, MEDICAID ==
[~2020-05-06] VITALS: Ht 162.6 cm; Wt 56.8 kg
[2020-05-06] MEDS ORDERED: HYDROCODON-ACE1 EA10 PO (12:18)
[2020-05-06] MEDS ORDERED: LINZESS145 MCG PO (12:18)
[2020-05-06 13:37] LABS: BASOPHILS 0.2 % (0-2); EOSINOPHILS 1.8 % (0-7); HEMOGLOBIN 9.5 g/dL (12-16); IMMATURE GRANULOCYTES 0.2 % (0-5); LYMPHOCYTES 12.8 % (15-50); MCH 30.1 pg (26.0-34.0); MCHC 31.7 g/dL (31.0-37.0); MCV 94.9 fL (80.0-100.0); MEAN PLATELET VOLUME 11.1 fL (7.4-10.4); MONOCYTES 6.4 % (2-11); NEUTROPHILS 78.6 % (40-80); RBC 3.16 10x6/uL (4.00-5.40); RDW 13.8 % (11.5-14.5); WBC 5.5 10x3/uL (4.8-10.8)
[2020-05-06 13:46] LABS: PLATELET COUNT 230 10x3/uL (130-400)
[2020-05-06 14:11] LABS: ANION GAP 9.7 mmol/L (8-16); CALCIUM 8.4 mg/dL (8.5-10.1); CARBON DIOXIDE 27.3 mmol/L (21.0-32.0)
[2020-05-06 14:19] LABS: ALBUMIN 2.8 g/dL (3.4-5.0); BILIRUBIN - TOTAL 0.24 mg/dL (0.2-1.3); PROTEIN - SERUM 5.3 g/dL (6.4-8.2); TROPONIN-I 0.024 ng/mL (0.000-0.060)
[2020-05-06 15:36] LABS: SPECIFIC GRAVITY 1.015 (1.005-1.020)
[2020-05-06 15:37] LABS: BILIRUBIN NEGATIVE (NEGATIVE); GLUCOSE NEGATIVE (NEGATIVE); KETONE NEGATIVE (NEGATIVE); NITRITE NEGATIVE (NEGATIVE); UROBILINOGEN NORMAL (NORMAL)
[2020-05-06 17:53] VITALS: BP 114/42; Ht 162.6 cm; Wt 56.8 kg
--- NOTE | 2020-05-06 18:04 | NUR ---
PATIENT ADMITTED TO ROOM 2239. ADMISSION COMPLETE. REQUESTED AND GIVEN WARM BLANKET. DENIES FURTHER NEEDS. BED LOW. CALL [place] AND PERSONAL ITEMS IN REACH. WILL CONTINUE TO MONITOR.
--- NOTE | 2020-05-06 18:10 | NUR ---
WANDA RODRIGUEZ NOTIFIED THAT PATIENT HAS ALREADY RECEIVED IV ABX PRIOR TO BLOOD CULTURE ORDER. ABX WERE ALREADY HUNG IN ER. STATES "IM OK WITH THAT." STATES TO CALL LAB D/T USE DIFFERENT TUBES. LAB NOTIFIED.
--- NOTE | 2020-05-06 18:14 | NUR ---
SPOKE WITH PHARMACY TO RETIME LEVAQUIN D/T HAVEN'T GOTTEN BLOOD CULTURES YET.
--- NOTE | 2020-05-06 18:21 | NUR ---
DR MARQUITA AVILA FOR CONSULT. WAITING CALL BACK.
--- NOTE | 2020-05-06 18:25 | NUR ---
DR JUÁREZ NOTIFIED OF CONSULT.
[2020-05-06] MEDS ORDERED: BUSPAR5 MG PO (18:45)
[2020-05-06] MEDS ORDERED: VITAMIN D1000 UNIT PO (18:46)
[2020-05-06 19:57] LABS: APTT 27.2 SECONDS (22.8-39.4); INR 1.03 (0.85-1.17); PROTIME 13.4 SECONDS (11.6-15.0)
--- NOTE | 2020-05-06 20:00 | NUR ---
ALERT RESTING IN BED, DENIES NAUSEA AT THSI TIME, SEE SHIFT ASSESSEMENT, CALL LIGHT IN REACH, TEL PLACED, DENIES NEEDS AT THIS TIME
[2020-05-06 20:23] VITALS: BP 127/85
[2020-05-06 20:41] VITALS: BP 131/45
[2020-05-06 23:57] VITALS: BP 127/50
[2020-05-07 05:25] VITALS: BP 124/46
[2020-05-07 06:10] LABS: HEPATITIS C ANTIBODY 0.2 (0.0-0.9)
[2020-05-07 06:56] LABS: ALBUMIN 2.7 g/dL (3.4-5.0); BILIRUBIN - TOTAL 0.31 mg/dL (0.2-1.3); CALCIUM 8.2 mg/dL (8.5-10.1); CARBON DIOXIDE 23.6 mmol/L (21.0-32.0); MAGNESIUM - SERUM 1.8 mg/dL (1.8-2.4); POTASSIUM - SERUM 3.6 mmol/L (3.5-5.1); PROTEIN - SERUM 5.7 g/dL (6.4-8.2)
[2020-05-07 07:38] LABS: BASOPHILS 0.5 % (0-2); EOSINOPHILS 2.1 % (0-7); HEMATOCRIT 28.8 % (36.0-48.0); HEMOGLOBIN 9.1 g/dL (12-16); IMMATURE GRANULOCYTES 0.3 % (0-5); LYMPHOCYTES 29.7 % (15-50); MCH 30.4 pg (26.0-34.0); MCHC 31.6 g/dL (31.0-37.0); MCV 96.3 fL (80.0-100.0); MEAN PLATELET VOLUME 11.5 fL (7.4-10.4); NEUTROPHILS 58.4 % (40-80); PLATELET COUNT 231 10x3/uL (130-400); RBC 2.99 10x6/uL (4.00-5.40)
[2020-05-07 07:49] LABS: WBC 3.8 10x3/uL (4.8-10.8)
--- NOTE | 2020-05-07 07:53 | NUR ---
ALERT AND ORIENTED. LUNGS CLEAR BILATERALLY. HEART SOUNDS S1 AND S2 HEARD IN ALL [place]. BOWEL SOUNDS ACTIVE X 4. IV TO RFA PATENT WITHOUT REDNESS. DENIES NEEDS. BED LOW. CALL [facility] AND PERSONAL ITEMS IN REACH. WILL CONTINUE TO MONITOR.
[2020-05-07 08:00] VITALS: BP 130/88
--- NOTE | 2020-05-07 12:36 | NUR ---
PATIENT REQUESTED AND GIVEN PRN PAIN MEDICATION.
[2020-05-07 12:42] VITALS: BP 135/58
--- NOTE | 2020-05-07 15:00 | NUR ---
IV OUT TO RFA. ATTEMPTED TO RESITE FOUR TIMES BY TWO RNS. VASCULAR ACCESS CONSULT PLACED.
[2020-05-07 16:00] VITALS: BP 134/57
[2020-05-07] MEDS ORDERED: LEVOFLOXACIN500 MG PO (16:39)
[2020-05-07] MEDS ORDERED: FLAGYL500 MG PO (16:39)
--- NOTE | 2020-05-07 17:13 | MORECARE ---
CASE MANAGEMENT DISCHARGE SUMMARY PATIENT: CATRINA WALDEN UNIT: [id number] ADM DATE: 05/06/20 AGE: 79 : 39 SEX: F ROOM/BED: D.2239 AUTHOR: MAXX MAE PHYSICIAN: REFERRING PHYSICIAN: ABDIRASHID KINSEY MD DATE OF SERVICE: 05/07/20 Discharge Plan Patient Name: CATRINA WALDEN Facility: [facility]:[place] : 1940 Planned Disposition: Anticipated Discharge Date: Discharge Date: Expected LOS: Initial Reviewer: [email or web address] Initial Review Date: 05/07/2020 Generated: 05/07/20 6:12 pm Comments DCP- Discharge Planning Updated by [email or web address]: Jayla Hoff on 05/07/20 4:[address] Patient Name: CATRINA WALDEN Admission Status: ER Accout number: [id number] Admission Date: 05-06-2020 : 1940 Admission Diagnosis: Attending: DION Current LOS: 1 Anticipated DC Date: Planned Disposition: Primary Insurance: MEDICARE A & B Discharge Planning Comments: CM met with patient at bedside after explaining CM role and obtaining verbal consent. CM discussed availability / needs of home health, REHAB and medical equipment. PATIENT DENIES ANY DISCHARGE NEEDS. STATES HAS IN HOME CARE AND IS CURRENT WITH [facility] . HAS EQUIPMENT. PLANS TO DC TO HOME WITH SON TODAY. CM TO FOLLOW AND ASSIST NEEDED. Basin Tender: Jayla Hoff Patient Name: CATRINA WALDEN Page [phone] at 1713 All edits/amendments must be made on the electronic document DICTATION DATE: 05/07/201711 BIZTALK CONSULTANT: FABRICE 05/07/201711 RPT#: [id number] DC DATE: STATUS: ADM IN [facility] [address] [place] [address] END OF REPORT
--- NOTE | 2020-05-07 17:27 | NUR ---
DISCHARGE EDUCATION PROVIDED BOTH WRITTEN AND VERBAL. VERBALIZED UNDERSTANDING. DENIES FURTHER QUESTIONS. SON IN ROOM DENIES QUESTIONS. NO IV TO REMOVE. PATIENT DC HOME WITH ALL BELONGINGS.
--- NOTE | 2020-05-08 17:34 | MORECARE ---
CASE MANAGEMENT DISCHARGE SUMMARY PATIENT: CATRINA WALDEN UNIT: [id number] ADM DATE: 05/06/20 AGE: 79 : 39 SEX: F ROOM/BED: D.2239 AUTHOR: MAXX MAE PHYSICIAN: REFERRING PHYSICIAN: ABDIRASHID KINSEY MD DATE OF SERVICE: 05/08/20 Discharge Plan Patient Name: CATRINA WALDEN Facility: [facility]:[place] : 1940 Planned Disposition: Anticipated Discharge Date: Discharge Date: 05/07/2020 Expected LOS: Initial Reviewer: [email or web address] Initial Review Date: 05/07/2020 Generated: 05/08/20 6:34 pm Comments DCP- Discharge Planning Updated by [email or web address]: Jayla Hoff on 05/07/20 4:[address] Patient Name: CATRINA WALDEN Admission Status: ER Accout number: [id number] Admission Date: 05-06-2020 : 1940 Admission Diagnosis: Attending: DION Current LOS: 1 Anticipated DC Date: Planned Disposition: Primary Insurance: MEDICARE A & B Discharge Planning Comments: CM met with patient at bedside after explaining CM role and obtaining verbal consent. CM discussed availability / needs of home health, REHAB and medical equipment. PATIENT DENIES ANY DISCHARGE NEEDS. STATES HAS IN HOME CARE AND IS CURRENT WITH [facility] . HAS EQUIPMENT. PLANS TO DC TO HOME WITH SON TODAY. CM TO FOLLOW AND ASSIST NEEDED. Sustainability Communicator: Jayla Hernandez DP export: 05/07/20 4:13 pm Patient Name: CATRINA WALDEN Page [phone] at 1734 All edits/amendments must be made on the electronic document DICTATION DATE: 05/08/201733 SPIRAL WEAVER: FABRICE 05/08/20 1734 RPT#: [id number] DC DATE:05/07/20 STATUS: DIS IN [facility] [address] [place] [address] END OF REPORT
== END 2020-05-07 18:02 | disposition home or self-care (01) | DRG 392 ==
LOC: D.ER 11:53 → D.MS 16:09
PROVIDERS: Family Medicine; ADMIT Family Medicine; ATTEND Family Medicine
DX: K29.80 Duodenitis without bleeding (principal); I48.20 Chronic atrial fibrillation, unspecified; R11.2 Nausea with vomiting, unspecified; R19.7 Diarrhea, unspecified; E86.0 Dehydration; I10 Essential (primary) hypertension; I25.10 Atherosclerotic heart disease of native coronary artery without angina pectoris; J44.9 Chronic obstructive pulmonary disease, unspecified; M19.90 Unspecified osteoarthritis, unspecified site; D64.9 Anemia, unspecified; K21.9 Gastro-esophageal reflux disease without esophagitis; G89.29 Other chronic pain; F41.8 Other specified anxiety disorders

== ENCOUNTER 2020-06-30 21:48 | Emergency (ER) | payer MEDICARE, OTHER, MEDICAID ==
[~2020-06-30] VITALS: Ht 162.6 cm; Wt 53.6 kg
[~2020-06-30 21:48] MED LIST changes: +BUSPAR5 MG PO; +HYDROCODON-ACE1 EA10 PO; +LINZESS145 MCG PO; +VITAMIN D1000 UNIT PO
[2020-06-30 22:08] VITALS: BP 160/87; Ht 162.6 cm; Wt 53.6 kg
== END 2020-06-30 23:03 | disposition home or self-care (01) ==
LOC: D.ER 21:48
DX: S51.812A Laceration without foreign body of left forearm, initial encounter (principal); X58.XXXA Exposure to other specified factors, initial encounter

== ENCOUNTER → 2020-08-14 16:40 | Outpatient (CLI) | payer MEDICARE, OTHER, MEDICAID ==
[2020-06-30 22:08] VITALS: BMI 20.3
[2020-08-14 17:05] LABS: BILIRUBIN NEGATIVE (NEGATIVE); KETONE NEGATIVE (NEGATIVE); NITRITE NEGATIVE (NEGATIVE); UROBILINOGEN NORMAL mg/dL (< 2)
== END | disposition home or self-care (01) ==
LOC: D.LAB 16:40
PROVIDERS: ATTEND Family Medicine
DX: R30.9 Painful micturition, unspecified (principal)

== ENCOUNTER 2021-04-13 19:38 | Emergency (ER) | payer MEDICARE, MEDICAID ==
[~2021-04-13] VITALS: Ht 162.6 cm; Wt 50.9 kg
[~2021-04-13 19:38] MED LIST changes: +ALDACTONE50 MG PO; +ATARAX 25 MG TA25 MG PO; +FLORAJEN3 CAPS460 MG PO; +LINZESS290 MCG PO; +PROLIA INJ 660 MG/M1 SC; +PROPRANOLOL HCL20 MG PO; +QUESTRAN LIG1 PACKET PO
[2021-04-13 19:46] VITALS: Ht 162.6 cm; Wt 50.9 kg
[2021-04-13 21:25] LABS: INR 1.4 (0.85-1.17); PROTIME 15.9 SECONDS (11.6-15.0)
[2021-04-13 21:26] LABS: APTT 32.7 SECONDS (22.8-39.4); CALC OSMOLALITY 273 mosm/kg (275-300); CALCIUM 9.3 mg/dL (8.5-10.1); CARBON DIOXIDE 30.3 mmol/L (21.0-32.0); CHLORIDE - SERUM 99 mmol/L (98-107); CREATININE - SERUM 1.1 mg/dL (0.6-1.3); GLUCOSE 100 mg/dL (74-106); POTASSIUM - SERUM 4.3 mmol/L (3.5-5.1); SODIUM 136 mmol/L (136-145); UREA NITROGEN 19 mg/dL (7-18); eGFR NON AFRICAN AMERICAN 50 mL/min (90-120)
[2021-04-13 21:27] LABS: D-DIMER-QUANTITATIVE 0.49 ug/mLFEU (0.20-0.54)
[2021-04-13 21:28] LABS: BASOPHILS 0.6 % (0-2); EOSINOPHILS 1.3 % (0-7); HEMATOCRIT 32.1 % (36.0-48.0); HEMOGLOBIN 10.6 g/dL (12-16); LYMPHOCYTES 15.6 % (15-50); MCH 31.1 pg (26.0-34.0); MCHC 33.1 g/dL (31.0-37.0); MEAN PLATELET VOLUME 9.8 fL (7.4-10.4); MONOCYTES 7.5 % (2-11); RBC 3.42 10x6/uL (4.00-5.40); RDW 12.8 % (11.5-14.5)
[2021-04-13 21:43] LABS: ALBUMIN 3.3 g/dL (3.4-5.0); ALKALINE PHOSPHATASE 57 U/L (30-120); ALT (SGPT) 15 U/L (10-68); BILIRUBIN - TOTAL 0.22 mg/dL (0.2-1.3); CKMB 0.5 U/L (0.0-3.6); CREATINE KINASE 39 UL (21-215); MAGNESIUM - SERUM 2.2 mg/dL (1.8-2.4); PROTEIN - SERUM 8.1 g/dL (6.4-8.2); TROPONIN-I < 0.017 ng/mL (0.000-0.060)
[2021-04-13 21:58] LABS: PLATELET COUNT 318 10x3/uL (130-400)
[2021-04-13 22:43] VITALS: BP 137/65
== END 2021-04-13 22:43 | disposition home or self-care (01) ==
LOC: D.ER 19:38
PROVIDERS: Emergency Medicine
DX: R07.89 Other chest pain (principal); J44.9 Chronic obstructive pulmonary disease, unspecified; I10 Essential (primary) hypertension